=== PATIENT | male | born 1955 | race Caucasian/White ===

== ENCOUNTER 2021-08-25 13:49 | Inpatient (IN) | payer OTHER ==
[~2021-08-25] VITALS: Ht 182.9 cm; Wt 150.2 kg
[2021-08-25 15:39] LABS: BASOPHIL 0.5 % (0-2); EOSINOPHIL 0 % (0-5); HCT 41.9 % (42.0-52.0); HGB 14.3 g/dl (13.2-18.0); LYMPHOCYTE 4.8 % (15-48); MCH 35.4 pg (25.0-31.0); MCHC 34.1 g/dL (32.0-36.0); MCV 103.7 fL (78.0-100.0); MONOCYTE 3.4 % (0-12); MPV 9.3 fL (6.0-9.5); NEUTROPHIL 90.8 % (41-80); NRBC 0; PLT 138 K/uL (150-400); RBC 4.04 M/uL (4.70-6.00); RDW 13.2 % (11.5-14.0); WBC 5.6 K/uL (4.0-10.5)
[2021-08-25 15:45] LABS: INR 1.21 (0.9-1.2); PROTHROMBIN TIME 14.7 SECONDS (11.8-13.4)
[2021-08-25 15:46] LABS: D-DIMER 1.13 ug/mLFEU (0.00-0.41)
[2021-08-25 15:53] LABS: LACTIC ACID 4.1 mmol/L (0.4-1.9)
[2021-08-25 15:55] LABS: ALBUMIN 2.7 g/dL (3.4-5.0); BILIRUBIN - TOTAL 1.4 mg/dL (0.2-1.0); BUN/CREAT RATIO (CALC) 20.8 RATIO; CREATININE 0.77 mg/dL (0.67-1.17); FT4 (FREE T4) 1.3 ng/dL (0.76-1.46); GLOBULIN (CALCULATION) 3.6 g/dL; MAGNESIUM 1.3 mg/dL (1.8-2.4); POTASSIUM 3.4 mmol/L (3.5-5.1); TOTAL PROTEIN 6.3 g/dL (6.4-8.2)
[2021-08-26 00:06] LABS: BILIRUBIN 1+ mg/dL (NEGATIVE); BLOOD NEGATIVE Ery/uL (NEGATIVE); CLARITY HAZY (CLEAR); COLOR YELLOW (YELLOW); GLUCOSE (U) NORMAL (NORMAL); LEUKOCYTES 2+ Leu/uL (NEGATIVE); NITRITE NEGATIVE (NEGATIVE); PROTEIN 1+ mg/dL (NEGATIVE); SPECIFIC GRAVITY 1.015 (1.001-1.030)
[2021-08-26 00:10] LABS: BACTERIA 3+; URINARY WBC TNTC
[2021-08-26 00:11] LABS: AMORPHOUS URATES CRYSTALS TRACE
[2021-08-26 01:20] LABS: HCT 40.5 % (42.0-52.0); HGB 13.5 g/dl (13.2-18.0); MCH 35.5 pg (25.0-31.0); MCHC 33.3 g/dL (32.0-36.0); MCV 106.6 fL (78.0-100.0); MPV 9.2 fL (6.0-9.5); RBC 3.8 M/uL (4.70-6.00); RDW 13.6 % (11.5-14.0)
[2021-08-26 01:26] LABS: WBC 15.3 K/uL (4.0-10.5)
[2021-08-26 01:43] LABS: BUN/CREAT RATIO (CALC) 23.9 RATIO; CREATININE 0.88 mg/dL (0.67-1.17); MAGNESIUM 2.6 mg/dL (1.8-2.4); PHOSPHORUS 4.9 mg/dL (2.6-4.7); POTASSIUM 3.2 mmol/L (3.5-5.1)
[2021-08-26 07:48] LABS: BASOPHIL 0.4 % (0-2); EOSINOPHIL 0 % (0-5); HCT 40.8 % (42.0-52.0); LYMPHOCYTE 2.1 % (15-48); MCH 36.6 pg (25.0-31.0); MCHC 34.3 g/dL (32.0-36.0); MCV 106.8 fL (78.0-100.0); MONOCYTE 3.8 % (0-12); MPV 9.1 fL (6.0-9.5); NRBC 0; PLT 108 K/uL (150-400); RBC 3.82 M/uL (4.70-6.00); RDW 13.4 % (11.5-14.0); WBC 10.1 K/uL (4.0-10.5)
[2021-08-26 07:49] LABS: NEUTROPHIL 93.3 % (41-80)
[2021-08-26 08:02] LABS: BUN/CREAT RATIO (CALC) 25.6 RATIO; CREATININE 0.82 mg/dL (0.67-1.17); POTASSIUM 3.5 mmol/L (3.5-5.1)
[2021-08-26] MEDS ORDERED: SYNTHROID75 MCG PO (10:06)
[2021-08-26] MEDS ORDERED: LOPRESSOR25 MG PO ×2 (10:06→10:11)
[2021-08-26] MEDS ORDERED: COLACE100 MG PO (10:07)
[2021-08-26] MEDS ORDERED: ASPIRIN EC81 MG PO (10:07)
[2021-08-26] MEDS ORDERED: DIGITEK125 MCG PO (10:07)
[2021-08-26] MEDS ORDERED: LISINOPRIL5 MG PO (10:08)
[2021-08-27 05:26] LABS: BASOPHIL 0.4 % (0-2); EOSINOPHIL 0.4 % (0-5); HGB 13.6 g/dl (13.2-18.0); LYMPHOCYTE 5.6 % (15-48); MCHC 33.2 g/dL (32.0-36.0); MCV 108.5 fL (78.0-100.0); MONOCYTE 9.9 % (0-12); MPV 9.8 fL (6.0-9.5); NRBC 0; PLT 115 K/uL (150-400); RBC 3.78 M/uL (4.70-6.00); RDW 13.5 % (11.5-14.0); WBC 11.1 K/uL (4.0-10.5)
--- NOTE | 2021-08-27 05:33 | NUR ---
PATIENT HAND OFF / REPORT TO [facility].TAISHA RECIEVED FROM DHRUV Duggan RN
[2021-08-27 05:36] LABS: NEUTROPHIL 82.9 % (41-80)
[2021-08-27 05:53] LABS: BUN/CREAT RATIO (CALC) 29.2 RATIO; CREATININE 0.96 mg/dL (0.67-1.17); POTASSIUM 4.3 mmol/L (3.5-5.1)
--- NOTE | 2021-08-27 07:56 | NUR ---
DISCUSSED VITAL SIGNS WITH MD AND PRIMARY RN. WILL HOLD CARDIZEM DOSE OF 60 MG AND MD WILL DECREASE DOSE MOVING FORWARD.
--- NOTE | 2021-08-27 16:27 | NUR ---
08/27/21 Mr. Morales lives at home with his spouse. He was independent with his mobility prior to admission. Mr. Morales elected no to pariticipate in further in an assessment.
[2021-08-28 06:51] LABS: BASOPHIL 0.4 % (0-2); HCT 39.5 % (42.0-52.0); LYMPHOCYTE 7.8 % (15-48); MCH 35.4 pg (25.0-31.0); MCHC 32.9 g/dL (32.0-36.0); MCV 107.6 fL (78.0-100.0); MONOCYTE 13.9 % (0-12); MPV 9.9 fL (6.0-9.5); NEUTROPHIL 76.5 % (41-80); NRBC 0; RBC 3.67 M/uL (4.70-6.00); RDW 13.2 % (11.5-14.0)
[2021-08-28 06:55] LABS: PLT 109 K/uL (150-400)
[2021-08-28 07:47] LABS: BUN/CREAT RATIO (CALC) 39.1 RATIO; CREATININE 0.69 mg/dL (0.67-1.17); POTASSIUM 3.7 mmol/L (3.5-5.1)
[2021-08-28] MEDS ORDERED: LASIX80 MG PO (10:09)
[2021-08-28 14:41] LABS: BUN/CREAT RATIO (CALC) 32.9 RATIO; CREATININE 0.73 mg/dL (0.67-1.17); POTASSIUM 3.7 mmol/L (3.5-5.1)
[2021-08-29 07:15] LABS: BASOPHIL 0.9 % (0-2); HCT 41.7 % (42.0-52.0); HGB 13.8 g/dl (13.2-18.0); LYMPHOCYTE 9.7 % (15-48); MCH 35.4 pg (25.0-31.0); MCHC 33.1 g/dL (32.0-36.0); MCV 106.9 fL (78.0-100.0); MPV 10.4 fL (6.0-9.5); NEUTROPHIL 68.3 % (41-80); NRBC 0; PLT 136 K/uL (150-400); WBC 6.6 K/uL (4.0-10.5)
[2021-08-29 07:40] LABS: BUN/CREAT RATIO (CALC) 26.2 RATIO; CREATININE 0.8 mg/dL (0.67-1.17); POTASSIUM 4.5 mmol/L (3.5-5.1)
[2021-08-29] MEDS ORDERED: DIGITEK125 MCG PO (10:18)
[2021-08-29] MEDS ORDERED: CEFIXIME400 MG PO (10:18)
--- NOTE | 2021-08-29 12:12 | NUR ---
08/29/21 A case management social worker referral was received to assist patient with transportation home. Nursing reports the [employer] to have provided a cab voucher.
== END 2021-08-29 11:20 | disposition home or self-care (01) | DRG 871 ==
LOC: FER 13:49 → FMS 08-26 03:52 → FTCU 08-26 03:52 → FOFB 08-26 06:00 → FTCU 08-26 06:09 → FMS 08-27 09:50
PROVIDERS: Allergy & Immunology; Allergy & Immunology Allergy; Emergency Medicine; Nurse Practitioner Acute Care; ADMIT Internal Medicine
PROC: B24BZZZ Ultrasonography of Heart with Aorta (ICD-10-PCS; principal; 2021-08-27)
DX: A41.51 Sepsis due to Escherichia coli [E. coli] (principal); I21.A1 Myocardial infarction type 2; I50.33 Acute on chronic diastolic (congestive) heart failure; N39.0 Urinary tract infection, site not specified; I48.20 Chronic atrial fibrillation, unspecified; E87.2 Acidosis; E87.1 Hypo-osmolality and hyponatremia; R65.20 Severe sepsis without septic shock; E83.42 Hypomagnesemia; D69.6 Thrombocytopenia, unspecified; E66.01 Morbid (severe) obesity due to excess calories; G47.33 Obstructive sleep apnea (adult) (pediatric); E11.9 Type 2 diabetes mellitus without complications; Z20.822 Contact with and (suspected) exposure to COVID-19; I11.0 Hypertensive heart disease with heart failure; E03.9 Hypothyroidism, unspecified; Z79.899 Other long term (current) drug therapy; Z99.81 Dependence on supplemental oxygen; Z98.84 Bariatric surgery status; Z79.82 Long term (current) use of aspirin; Z83.3 Family history of diabetes mellitus; Z82.3 Family history of stroke; Z80.1 Family history of malignant neoplasm of trachea, bronchus and lung; Z80.42 Family history of malignant neoplasm of prostate; Z82.49 Family history of ischemic heart disease and other diseases of the circulatory system
CPT/HCPCS: 36415; 71045; 71275; 80048; 80053; 80162; 81001; 83036; 83605; 83735; 83880; 84100; 84145; 84439; 84443; 84484; 85025; 85379; 85610; 85730; 87040; 87077; 87186; 93005; 94010; J0696; J1650; J1940; J2543; J7030; Q9967; U0002